=== PATIENT | female | born 1965 | race Hispanic/Latino ===

== ENCOUNTER 2025-02-04 06:42 | Outpatient (CLI) | payer OTHER, SELFPAY ==
--- NOTE | ~2025-02-04 | CT_ITS ---
EXAMINATION: CT abdomen pelvis w con DATE: 02/04/2025 07:25 INDICATION: Left lower quadrant abdominal TECHNIQUE: Computed tomography (CT) of the abdomen and pelvis was performed without intravenous contrast. The dose-length product was 928.16 mGy-cm. Automated exposure control and iterative reconstruction technique were employed. COMPARISON: None. FINDINGS: Lung bases are unremarkable. Heart size normal. No significant pleural or pericardial effusion. Fatty infiltration of the liver. The spleen, pancreas, adrenal glands are unremarkable. There is a 4 mm nonobstructing right renal stone. There is a 5 mm nonobstructing left renal stone. Nonobstructive bowel gas pattern. No significant vascular abnormality. No lymphadenopathy. No free air or free fluid. Status post cholecystectomy with expected prominence of the bile ducts. Severe lumbar spondylosis. Bladder is decompressed. IMPRESSION: 1. Nonobstructing bilateral nephrolithiasis. Reviewed, dictated and finalized at location O.
--- OUTSIDE RECORDS SUMMARY | 2025-02-04 06:47 | XMS_ITS | Encounter Summary ---
Author Organization [facility] Healthcare Address [address] [place] [address] Care Team Providers Care Telephone Order Dispatcher Name Role Phone Yvrose Kinney MD Primary Care Provider [phone] Sudhakar Liz MD Primary Care Provider [phone] Arianne Guo MD Primary Care Provider [phone] Timo Jerry MD Unavailable Rachid Hopper MD Unavailable Kenji Cardenas MD Primary Care Provider + [phone] Jenaro Avitia MD Unavailable [phone] Edward Hatfield MD Unavailable Lyn Nickerson PhD Unavailable [phone] Vargas Levy MD Unavailable [phone] Rosario Duncan DO Primary Care Provider [phone] Ti Parisi MD Unavailable [phone] Encounter Details Date Type Department Care Team (Late st Contact Info) Description 11/05/2016 Orders Only [facility] Health Information Management [address] [place] [address] Scanning, Provider Social History Tobacco Use Types Packs/Day Years Used Date Smoking Tobacco: Never Assessed Comments Unknown Sex and Gender Information Value Date Recorded Sex Assigned at Not on file Legal Sex Female 9:48 PM CDT Gender Identity Not on file Sexual Orientation Not on file documented as of this encounter Plan of Treatment Not on file documented as of this encounter Procedures Procedure Name Priority Date/Time Associated Diagnosis Comments SLEEP LAB/STUDY - RESULT 11/05/2016 documented in this encounter Results * SLEEP LAB/STUDY - RESULT (11/05/2016) us Provider Scanning Final Result documented in this encounter Visit Diagnoses Not on filedocumented in this encounter Additional Health Concerns Infection Onset Date Last Indicated Resolved Time COVID: Suspected 04/24/2023 04/24/2023 04/24/2023 11:51 AM PLASTICS FABRICATOR OR WELDER documented as of this encounter Care Teams Telephone Order Dispatcher Relationship Specialty Start Date End Date Yvrose Kinney MD [address] [address] PCP - General 07/25/19 08/11/19 Sudhakar Liz MD [address] [address] PCP - General Family Medicine 08/12/19 11/28/20 Arianne Guo MD [facility] [facility] [address] Malhotra [facility] [address] [place] [address] PCP - General Internal Medicine 11/29/20 10/15/22 Kenji Cardenas MD [address] [facility] [address]6B[address] [place] [address] PCP - General Internal Medicine 10/16/22 01/29/24 Rosario Duncan DO [address] [facility] [address] [place] [address] [place] [address] PCP - General Family Medicine 01/30/24 Timo Jerry MD [address] [facility] 6A/6B/12A [place] [address] Consulting Physician Orthopedic Surgery 10/16/22 Rachid Hopper MD [address] [facility] 6A/6B[address]A [place] [address] Consulting Physician Gastroenterology 10/16/22 Jenaro Avitia MD [address] [facility] 6A/6B[address]A [place] [address] Consulting Physician Neurology 10/16/22 Edward Hatfield MD [address] [place] [address] Consulting Physician Urology 10/16/22 Lyn Nickerson, PhD [address] [place] [address] Psychologist Psychology 10/16/22 Vargas Levy MD [facility] [address] [address] Consulting Physician Obstetrics and Gynecology 10/16/22 Ti Parisi MD [address] [place] [address] Consulting Physician General Surgery 12/08/24 documented as of this encounter
--- OUTSIDE RECORDS SUMMARY | 2025-02-04 06:47 | XMS_ITS | Encounter Summary ---
Author Organization [facility] Healthcare Address [address] [place] [address] Care Team Providers Care Shuffle Board Operator Name Role Phone Sudhakar Liz MD Primary Care Provider [phone] Arianne Guo MD Primary Care Provider [phone] Timo Jerry MD Unavailable Rachid Hopper MD Unavailable Kenji Cardenas MD Primary Care Provider + [phone] Jenaro Avitia MD Unavailable [phone] Edward Hatfield MD Unavailable Lyn Nickerson PhD Unavailable [phone] Vargas Levy MD Unavailable [phone] Rosario Duncan DO Primary Care Provider [phone] Ti Parisi MD Unavailable Encounter Details Date Type Department Care Team (Late st Contact Info) Description 11/02/2020 Telephone [facility] [address] [address] [place] [address] Tanya Malik, RT Social History Tobacco Use Types Packs/Day Years Used Date Smoking Tobacco: Never Smokeless Tobacco: Never Alcohol Use Standard Drinks/Week Comments Yes 1 (1 standard drink = 0.6 oz pur e alcohol) PHQ-2 Answer Date Recorded PHQ-2 Total Score 4 11/23/2019 Comments Unknown Sex and Gender Information Value Date Recorded Sex Assigned at Not on file Legal Sex Female 9:48 PM CDT Gender Identity Not on file Sexual Orientation Not on file documented as of this encounter Plan of Treatment Not on file documented as of this encounter Visit Diagnoses Not on filedocumented in this encounter Additional Health Concerns Infection Onset Date Last Indicated Resolved Time COVID: Suspected 04/24/2023 04/24/2023 04/24/2023 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 documented as of this encounter Care Teams Shuffle Board Operator Relationship Specialty Start Date End Date Sudhakar Liz MD PCP - General Family Medicine 08/12/19 11/28/20 Arianne Guo MD [facility] [address] Malhotra [address] [address] PCP - General Internal Medicine 11/29/20 10/15/22 Kenji Cardenas MD [address] [facility] [place] [address] PCP - General Internal Medicine 10/16/22 01/29/24 Rosario Duncan DO [address] [facility] [address] [place] [address] [place] [address] PCP - General Family Medicine 01/30/24 Timo Jerry MD [address] [facility] [place] [address] Consulting Physician Orthopedic Surgery 10/16/22 Rachid Hopper MD [address] [facility] [place] [address] Consulting Physician Gastroenterology 10/16/22 Jenaro Avitia MD [address] [facility] 6A/6B/12A [place] [address] Consulting Physician Neurology 10/16/22 Edward Hatfield MD [address] [place] [address] Consulting Physician Urology 10/16/22 Lyn Nickerson, PhD [address] [place] [address] Psychologist Psychology 10/16/22 Vargas Levy MD [address] [address] Consulting Physician Obstetrics and Gynecology 10/16/22 Ti Parisi MD [address] [place] [address] Consulting Physician General Surgery 12/08/24 documented as of this encounter
--- OUTSIDE RECORDS SUMMARY | 2025-02-04 06:47 | XMS_ITS | Encounter Summary ---
Author Organization [facility] Healthcare Address [address] [place] [address] Care Team Providers Care Pilot Submersible Name Role Phone Arianne Gou MD Primary Care Provider [phone] Timo Jerry MD Unavailable Rachid Hopper MD Unavailable Kenji Cardenas MD Primary Care Provider [phone] Jenaro Avitia MD Unavailable [phone] Edward Hatfield MD Unavailable Lyn Nickerson PhD Unavailable [phone] Vargas Levy MD Unavailable [phone] Rosario Duncan DO Primary Care Provider [phone] Ti Parisi MD Unavailable Reason for Visit * Reason Onset Date Comments Pre-Surgical Call 07/23/2021 Encounter Details Date Type Department Care Team (Late st Contact Info) Description 07/23/[address] [facility] [address] [facility] [address] [place] [address] Arturo Banuelos MD [address] [facility] [address] [place], [place] [address] Pre-Surgical Call Social History Tobacco Use Types Packs/Day Years Used Date Smoking Tobacco: Never Smokeless Tobacco: Never Comments:day and night Alcohol Use Standard Drinks/Week Comments Yes 1 (1 standard drink = 0.6 oz pur e alcohol) AUDIT-C Answer Date Recorded Q1: How often do you have a drink containing alc ohol? 2-4 times a month 07/20/2021 Q2: How many drinks containi ng alcohol do you have on a typical day when you are drinking? 1 or 2 07/20/2021 Q3: How often do you have si x or more drinks on one occasion? Never 07/20/2021 PHQ-2 Answer Date Recorded PHQ-2 Total Score 4 11/23/2019 Comments No Sex and Gender Information Value Date Recorded Sex Assigned at Not on file Legal Sex Female 9:48 PM CDT Gender Identity Not on file Sexual Orientation Not on file documented as of this encounter Plan of Treatment Not on file documented as of this encounter Goals Goal Patient Goal Type Associated Problems Recent Progress Patient-Stated? Author CCM Chronic Pain Care Plan Chronic Care Management Worsening( 1:39 PM UNDERGROUND DRILL OPERATOR) No Marla Thurston, BALTAZAR Note: Problem: Chronic Pain Goals: 1. Minimize further functional decline 2. Maximize quality of life 3. 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 documented as of this encounter Care Teams Pilot Submersible Relationship Specialty Start Date End Date Arianne Guo MD [address] [facility] [address] [place] [place] [address] PCP - General Internal Medicine 11/29/20 10/15/22 Kenji Cardenas MD [address] [place] [address] PCP - General Internal Medicine 10/16/22 01/29/24 Rosario Duncan DO [address] [facility] [address] [place] [address] PCP - General Family Medicine 01/30/24 Timo Jerry MD [address] [facility] 6A/6B[address]12[address] [place] [address] Consulting Physician Orthopedic Surgery 10/16/22 Rachid Hopper MD [address] [facility] 6A/6B[address] [place] [address] Consulting Physician Gastroenterology 10/16/22 Jenaro Avitia MD [address] [facility] [address] [place] [address] Consulting Physician Neurology 10/16/22 Edward Hatfield MD [address] [place] [address] Consulting Physician Urology 10/16/22 Lyn Nickerson, PhD [address] [place] [address] Psychologist Psychology 10/16/22 Vargas Levy MD [address] [facility] [address] [place] [address] Consulting Physician Obstetrics and Gynecology 10/16/22 Ti Parisi MD [address] [address] Consulting Physician General Surgery 12/08/24 documented as of this encounter
--- OUTSIDE RECORDS SUMMARY | 2025-02-04 06:47 | XMS_ITS | Encounter Summary ---
Author Organization [facility] Healthcare Address [address] [place] [address] Care Team Providers Care Concrete Foreman Name Role Phone Timo Jrery MD Unavailable Rachid Hopper MD Unavailable Jenaro Avitia MD Unavailable [phone] Edward Hatfield MD Unavailable Lyn Nickerson PhD Unavailable [phone] Vargas Levy MD Unavailable [phone] Rosario Duncan DO Primary Care Provider [phone] Ti Parisi MD Unavailable Encounter Details Date Type Department Care Team (Late st Contact Info) Description 01/14/2025 Results Follow-Up [facility] Family Medicine [address] [place] [phone] Rosario Duncan DO [address] [place] [address] CBC with auto differential Social History Tobacco Use Types Packs/Day Years Used Date Smoking Tobacco: Never Smokeless Tobacco: Never Comments:day and night Alcohol Use Standard Drinks/Week Comments Yes 1 (1 standard drink = 0.6 oz pur e alcohol) AUDIT-C Answer Date Recorded Q1: How often do you have a drink containing alc ohol? Monthly or less 12/08/2024 Q2: How many drinks containi ng alcohol do you have on a typical day when you are drinking? 1 or 2 12/08/2024 Q3: How often do you have si x or more drinks on one occasion? Never 12/08/2024 PHQ-2 Answer Date Recorded PHQ-2 Total Score (If total score is 3 or more points, staff should administer the PHQ-9) 2 01/12/2025 PHQ-9 Answer Date Recorded PHQ-9 Total Score 13 01/12/2025 Personal Safety Answer Date Recorded Have you ever been in or are you currently in a harmful physical or emotional relationship or is someone making you feel afraid or unsafe? Denies 12/08/2024 Comments No Sex and Gender Information Value [...] Plan Chronic Care Management Worsening( 1:39 PM MENTAL HEALTH NURSE) Marla Crespo, RN Note: Problem: Chronic Pain Goals: 1. Minimize further functional decline 2. Maximize quality of life 3. Control pain Strategies: - Activity/exercise program recommendation - Conservative stepwise pain medicine strategy with multi-disciplinary approach - Recommend healthy lifestyle strategies and compensatory methods as needed documented as of this encounter Visit Diagnoses Not on filedocumented in this encounter Care Teams Concrete Foreman Relationship Specialty Start Date End Date Rosario Duncan DO [address] [facility] [address] [place] [address] [place] [address] PCP - General Family Medicine 01/30/24 Timo Jerry MD [address] [facility] [place] [address] Consulting Physician Orthopedic Surgery 10/16/22 Rachid Hopper MD [address] [facility] [place] [address] Consulting Physician Gastroenterology 10/16/22 Jenaro Avitia MD [address] [facility] /6B/[address] [place] [address] Consulting Physician Neurology 10/16/22 Edward Hatfield MD [address] [place] [address] Consulting Physician Urology 10/16/22 Lyn Nickerson, PhD [address] [place] [address] Psychologist Psychology 10/16/22 Vargas Levy MD [address] [address] Consulting Physician Obstetrics and Gynecology 10/16/22 Ti Parisi MD [address] [place] [address] Consulting Physician General Surgery 12/08/24 documented as of this encounter
--- OUTSIDE RECORDS SUMMARY | 2025-02-04 06:47 | XMS_ITS | Clinical Summary ---
Author Organization [facility] [address] [place] [address] [place] [id number] Care Team Providers Care Turkey Picker Name Role Phone Timo Jerry MD Unavailable Rachid Hopper MD Unavailable Jenaro Avitia MD Unavailable [phone] Edward Hatfield MD Unavailable Lyn Nickerson PhD Unavailable [phone] Vargas Levy MD Unavailable [phone] Rosario Duncan DO Primary Care Provider [phone] Ti Parisi MD Unavailable Allergies Active Allergy Reactions Criticality Noted Date Comments Mushroom Itching,Swelling Medium 02/01/2020 Wheat Diarrhea,Flatulence,Stomach upset Low Medications cholecalciferol (VITAMIN D-3) 5,000 unit tablet 1 tablet (5,000 Units total) daily Active ibuprofen (ADVIL,MOTRIN) 600 mg tablet Take 1 tablet (600 mg total) by mouth every 6 (six) hours as needed for pain (pain) 60 tablet 022 Active albuterol 2.5 mg /3 mL (0.083 %) nebulizer solutionIndicat ions:Bronchospa stic Pulmonary Disease Take 6 mL (5 mg total) by nebulization 4 (four) times a day as needed for wheezing or shortness of breath 540 mL 1 023 Active oregano oiL 1,500 mg capsule Take by mouth Active NON FORMULARY, FOR INPATIENT USE, Histablock respiratory system Active acidophilus-pec tin, citrus 100 million cell-10 mg capsule Take by mouth Probiotic [address]Formulated Active fluticasone propion-salmete roL (Advair HFA) 115-21 mcg/actuation inhalerIndicati ons:Maintenance Therapy for Asthma Inhale 2 puffs 2 (two) times a day Rinse mouth with water after use. Do not swallow. 1 each 3 024 Active amLODIPine (NORVASC) 5 mg tabletIndicatio ns:Essential hypertension TAKE 1 TABLET DAILY 90 tablet 1 025 Active irbesartan (AVAPRO) 150 mg tabletIndicatio ns:Essential hypertension Take 1 tablet (150 mg total) by mouth daily 90 tablet 025 Active citalopram (CeleXA) 20 mg tabletIndicatio ns:Moderate episode of recurrent major depressive disorder (HCC) TAKE 1 TABLET DAILY 90 tablet 025 Active klnwmyfy-mzxp-q kk1-X-rbjc-bosw 750 mg-644 mg- 30 mg-1 mg tablet Take 1 tablet by mouth Active magnesium oxide 500 mg capsule Take 1 tablet by mouth daily Active pantoprazole DR (PROTONIX) 40 mg EC tabletIndicatio ns:Gastroesopha geal reflux disease, unspecified whether esophagitis present Take 1 tablet (40 mg total) by mouth daily 90 tablet 1 025 Active albuterol HFA (PROVENTIL HFA,VENTOLIN HFA,PROAIR HFA) 90 mcg/actuation inhalerIndicati ons:Moderate persistent asthma with acute exacerbation USE 2 INHALATIONS EVERY 6 HOURS NEEDED FOR WHEEZING 34 g [address] (PROTONIX) 40 mg EC tabletIndicatio ns:Gastroesopha geal reflux disease without esophagitis Take 1 tablet (40 mg total) by mouth daily 90 tablet 1 024 2024 Discontinued(R eorder) albuterol HFA (PROVENTIL HFA,VENTOLIN HFA,PROAIR HFA) 90 mcg/actuation inhalerIndicati ons:Moderate persistent asthma with acute exacerbation Inhale 2 puffs every 6 (six) hours as needed for wheezing 3 each 4 024 2024 Discontinued Active Problems Problem Noted Date Diagnosed Date Fecal urgency 09/09/2024 Right carpal tunnel syndrome 06/16/2024 Left carpal tunnel syndrome 06/16/2024 Carpal tunnel syndrome of right wrist 06/16/2024 Bilateral carpal tunnel syndrome 03/05/2024 Overview (03/05/2024): History of carpal tunnel. Prior surgery on the right. Symptoms worsening. We will refer to hand surgery. 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 Acid reflux may also be contributing. Prescribed nebulizer and recheck at next visit Lung nodule 09/03/2021 Altered bowel habits 06/21/2021 Gastroesophageal reflux disease without esophagi tis 06/21/2021 Assessment & Plan (01/20/2023 7:27 PM CDT): Relatively controlled. No major interval change Assessment & Plan (11/07/2022 4:48 PM CDT): No obvious reflux symptoms is taking omeprazole. Patient may possibly be having extra esophageal symptoms with more respiratory. Maybe triggering asthma flare Sciatica 03/06/2021 Assessment & Plan (03/06/2021 10:27 AM CDT): -chronic intermittent problem. Bilateral sciatica. No red flag symptoms such as loss of bowel or bladder sensation. Motor intact -patient has had MRI. She states she has three herniated discs as well as spina bifida occulta and scoliosis -patient has congenital back issues and was told she might need surgery at some point down the road. -will try a steroid Dosepak, ibuprofen 800 mg t.i.d. as well as gabapentin -physical therapy referral placed. Patient states she was doing very well with exercise/physical therapy in the past however she has not been doing this recently and symptoms recurred. -symptoms have been going on for two weeks Vitamin D deficiency 01/04/2021 Episodic tension-type headache, not intractable 09/19/2020 Assessment & Plan (03/27/2021 12:54 PM CDT): Prefers to hold off of additional medications at this time. She will continue to follow up with Dr. Carrera for neck and shoulder pain and Dr. Nickerson with Pain Psychology. Numbness and tingling in both hands 03/14/2020 Thyroid nodule 12/07/2019 Fibromyalgia 03/26/2019 Essential hypertension 03/26/2019 Assessment & Plan (03/09/2023 4:56 PM CDT): Controlled/stable. Continue current meds and plan Assessment & Plan (01/20/2023 7:25 PM CDT): Controlled/stable. Continue current meds and plan with irbesartan,amlodipine. Assessment & Plan (11/07/2022 4:45 PM CDT): Blood pressure slightly high today. Recommend monitoring home blood pressure readings and bring to next office visit. Continue medication Assessment & Plan (03/06/2021 10:26 AM CDT): -controlled on current regimen. Assessment & Plan (01/30/2021 4:52 PM CDT): - Chronic, Blood pressure is well-controlled - Discussed how routine use of a CPAP machine can help control BP - Continue current medications Assessment & Plan (01/04/2021 5:27 PM CDT): -elevated today however patient was very tearful. -patient to follow-up with me in the next 2 to 3 months -patient let me know if blood pressure routinely over 120/80 ANTONIO on CPAP 03/26/2019 Assessment & Plan (11/14/2022 3:06 PM CDT): The patient will continue CPAP at 9 cm water pressure. I did instruct the patient that if we care unable to get her download or her sleep study she would have to repeat a nocturnal polysomnogram with split night protocol no MSLT. The patient and I also discussed an in-home nocturnal polysomnogram as an option. Patient would be agreeable to complete the testing. DME is [employer] in [facility] I have also requested sleep study from the [facility] and the [employer] in [facility]. I have also provided the patient information in regards to the recall. Assessment & Plan (11/07/2022 4:49 PM CDT): Has been sometime since she is seen sleep Medicine. We will refer to see how she is doing. Sleep apnea maybe presenting with asthma like symptoms Assessment & Plan (03/06/2021 10:26 AM CDT): -following with Dr. [facility]. Assessment & Plan (01/30/2021 4:52 PM CDT): 1. Chronic, poorly controlled 2. This is in the setting of not using her CPAP because it was recalled 3. She will bring her sleep study and will place order for her to get new CPAP machine Moderate persistent asthma without complication 03/26/2019 Assessment & Plan (01/20/2023 7:27 PM CDT): Improved. But not at goal. Better by 50% . Using rescue 3-4/week. Reduced marijuana has helped. Medication (nebulizer) also helping. Continue and add on ICS (advair) Moderate episode of recurrent major depressive d isorder 03/26/2019 Assessment & Plan (03/09/2023 4:56 PM CDT): Controlled. Continue lifestyle modification Resolved Problems Problem Noted Date Diagnosed Date Resolved Date Fall 02/20/2022 01/30/2024 Assessment & Plan (02/20/2022 11:32 PM CDT): She had 2 separate falls. Both falls were accidental. She fell on her left shoulder and both knees. The right ankle is swollen and she reports right foot pain. She is able to bear weight on her foot and ankle. There is pain and decreased ROM in the left shoulder. Will check x rays. Prescription for Ibuprofen 600 mg q6h prn for pain provided. Advised to take with food. Will follow up pending results. Acute pain of both knees 02/20/202208/2023 Assessment & Plan (02/20/2022 11:36 PM CDT): She fell on both knees. There is some tenderness on palpation; no swelling. Will check x rays and treat with NSAID. Acute right ankle pain 02/20/202202/02 Assessment & Plan (02/20/2022 11:33 PM CDT): There is pain and swelling in the right ankle. She is able to bear weight. Most likely a strain, however will check x ray to r/o fracture. Will treat with rest, elevation and NSAID. Acute pain of left shoulder 02/20/2022 02/03/2024 Assessment & Plan (02/20/2022 11:36 PM CDT): She fell on her left shoulder after the 1st fall. There is pain and decreased ROM. Will check x ray. Will treat with NSAID. Follow up pending results. Pain in left foot 09/03/2021 02/03/2024 Epigastric pain 06/21/2021 08/28/2022 Weight loss 06/21/2021 08/28/2022 Exposure to industrial toxin 03/27/2021 01/30/2024 Overview (03/27/2021): Lived at [facility]. At elevated risk of ALS and certain malignancies. Does not currently have symptoms of asymmteric weakness but will follow up with her regularly for comprehensive examination. Asked her to keep me updated should she notice new focal symptoms. Myofascial right upper quadrant pain 01/04/2021 02/03/2024 Status post cholecystectomy 01/04/2021 02/03/2024 Preventative health care 01/04/2021 Assessment & Plan (11/22/2021 2:07 PM CDT): No charge could not connect with pt Brain tumor 04/17/2020 03/05/2024 Overview (03/05/2024): MRI brain 04/16/2020: T1 hyperintense lesion in the left superior frontal calvarium. When correlated with CT on 12/14/2019, given its well demarcated borders, this lesion is favored to be a benign lesion such as a hemangioma. Neck pain 03/14/2020 02/03/2024 Trigger finger of right thumb 10/11/2019 02/03/2024 Chronic pain of right thumb 03/26/2019 02/03/2024 Encounters Date Type Department Care Team Description 02/03/[address] [place] [phone] Rosario Duncan, DO Medical Question/Miscellaneo us 01/28/[address] [place] [phone] Rosario Duncan, DO Medical Question/Miscellaneo us 01/14/2025 Results Follow-Up [address] [place] [phone] Rosario Duncan, DO CBC with auto differential 01/12/2025 2:45 PM CDT Lab [facility] [address] [place] [address] Left lower quadrant abdominal pain 01/12/2025 2:00 PM CDT Office Visit [address] [place] [phone] Rosario Duncan, DO Left lower quadrant abdominal pain (Primary Dx); Diarrhea, unspecified type; Gastroesophageal reflux disease, unspecified whether esophagitis present; Dark stools; Encounter for screening mammogram for malignant neoplasm of breast 12/08/2024 10:30 AM CDT - 12/08/2024 11:50 AM CDT Surgery [facility] OR [address] [place] [phone] Ti Parisi MD EXCISIONAL BIOPSY LEFT AXILLARY NODULE 12/08/2024 10:18 AM CDT Anesthesia Event [facility] OR [address] [place] [phone] Mao Triana, PICC NURSE 12/08/2024 9:33 AM CDT - 12/08/2024 11:20 AM CDT Hospital Encounter [facility] OR [address] [place] [id number] Ti Parisi MD Axillary mass, left Discharge Disposition: Discharge to home or self care 11/24/[address] [place] [phone] Rosario Duncan DO Med Refill 11/11/[address] [place] [phone] Rosario Duncan DO Forms Request (Medical Clearance) from Last 3 Months Immunizations Immunization Administration Dates Next Due Influenza, Unspecified 03/02/2024(Deferr ed: Patient Refused),04/19/2023(Deferred: Patient Refused) Pfizer SARS-CoV-2 Monovalent Vaccination (12+ Yrs) NIXON-READY TO USE 10/22/2021 Pfizer SARS-CoV-2 Monovalent Vaccination (12+ Yrs) PURPLE 01/27/2021,01/06/2021 Pneumococcal Polysaccharide PPV23 12/31/2018 Surgical History Surgery Date Site/Laterality Comments TONSILLECTOMY CRANIOTOMY 06/02/2004 - 06/01/2005 extradural cyst CHOLECYSTECTOMY HYSTERECTOMY 06/02/1999 - 06/01/2000 Fibroids. they took ovaries out seperate time CARPAL TUNNEL RELEASE Right OOPHORECTOMY Bilateral unsure exactly. but they took everything APPENDECTOMY 06/02/2003 - 06/01/2004 FLUORO GUIDED ASPIRATION OR INJECTION LARGE JOINT BILATERAL 05/13/2022 Bilateral BREAST SURGERY 06/02/1989 - 06/01/1990 cyst removed FLUORO GUIDED ASPIRATION OR INJECTION LARGE JOINT BILATERAL 11/05/2022 Bilateral CARPAL TUNNEL RELEASE 06/22/2024 Right revision COLONOSCOPY W/ POLYPECTOMY x 3-4 hx polyps UPPER GASTROINTESTINAL ENDOSCOPY x2 CATARACT EXTRACTION Bilateral 11/17/24 and 11/22/24 CYST REMOVAL Medical History Medical History Date Comments Asthma Arthritis Carpal tunnel syndrome Sleep apnea Plantar fasciitis Peripheral neuropathy Gastric reflux Hypertension Kidney stone Osteoarthritis Thyroid nodule Allergic rhinitis Depression HL (hearing loss) bilateral Tinnitus Dizziness Fibromyalgia GERD (gastroesophageal reflux disease) Anxiety Not sure Cataract 2021 Exposure to industrial toxin 03/27/2021 [facility] ed at [facility]. At elevated risk of ALS and certain malignancies. Does not currently have symptoms of asymmteric weakness but will follow up with her regularly for comprehensive examination. Asked her to keep me updated should she notice new focal symptoms. Trigger finger of right thumb 10/11/2019 Brain tumor 04/17/2020 MRI brain 2019: T1 hyperintense lesion in the left superior frontal calvarium. When correlated with CT on 12/14/2019, given its well demarcated borders, this lesion is favored to be a benign lesion such as a hemangioma. PONV (postoperative nausea a nd vomiting) Heart murmur Irritable bowel syndrome Lung nodule Family History Medical History Relation Name Comments Thyroid cancer Brother Diabetes Father Rashid Riley n Hypertension Father Rashid Riley n Stroke Maternal Grandfather Tao White Breast cancer Maternal Grandmother Carol Ruiz unsu re of age, did not get to meet her Cancer Maternal Grandmother Carol Ruiz Depression Mother Alona White Fibromyalgia Mother Alona White Mental illness Mother Alona White Alcohol abuse Mother's Brother 1 Bryant White Arthritis Mother's Brother 2 Jimmy White ([place] Heart attack Mother's Brother 3 Jimmy White Heart disease Mother's Brother 3 Jimmy White Hypertension Mother's Brother 3 Jimmy White Thyroid cancer Sister 1 Thyroid disease Sister 2 Relation Name Status Comments Brother Alive Father Rashid Riley n Maternal Grandfather Tao White Maternal Grandmother Carol Ruiz Mother Alona White Mother's Brother 1 Bryant White Mother's Brother 2 Jimmy White ([place] Mother's Brother 3 Jimmy White Sister 1 Alive Sister 2 Alive Social History Tobacco Use Types Packs/Day Years Used Date Smoking Tobacco: Never Smokeless Tobacco: Never Tobacco Cessation:Counseling Given: Not Answered Comments:day and night Alcohol Use Standard Drinks/Week [...] on file Sexual Orientation Not on file Obstetrics History Para Term AB IAB SAB Ectopic Multiple Livin g Live Births 0 0 0 0 0 0 0 0 0 0 0 Comments Menarche: 9 Last Filed Vital Signs Vital Sign Reading Time Taken Comments Blood Pressure 112/86 01/12/2025 1:59 PM CDT Pulse 79 01/12/2025 1:59 PM CDT Temperature 36.3 C (97.3 F) 01/12/2025 1:59 PM CDT Respiratory Rate 16 12/08/2024 11:0 7 AM CDT Oxygen Saturation 97% 01/12/2025 1:59 PM CDT Inhaled Oxygen Concentration - - Weight 89.7 kg (197 lb 12.8 oz) 01/12/2025 1:59 PM CDT Height 165.1 cm (5' 5) 01/12/2025 1:59 PM CDT Body Mass Index 32.92 01/12/2025 1:59 PM CDT Plan of Treatment Health Maintenance Due Date Last Done Comments DTaP/Tdap/Td Vaccine (1 - Tdap) 1974 Hepatitis B Screening 1981 Zoster Vaccine (1 of 2) 2013 Pneumococcal vaccine <65 (2 of 2 - PCV) 01/01/2020 12/31/2018 Covid-19 Vaccine (4 - 2024-2 6 season) 2025 10/22/2021, 01/27/2021, 01/06/2021 Breast Cancer Screening-Mammogram 02/05/2025 02/06/2024, 12/17/2022, 11/14/2020 Regular Well Visit/Exam 18-64 03/05/2025, 01/04/2021, 12/06/2020 Depression Screening 01/12/2026 01/12/2025, 07/21/2024, 07/21/2024, Additional history exists Colon Cancer Screening-Colonoscopy 09/24/2034 09/24/2024, 10/20/2020 Cervical Cancer Screening Discontinued 12/06/2020 Hepatitis C Screening Completed 01/04/2021 Colon Cancer Screening-CT Colonography Discontinued 09/24/2024, 10/20/2020 Colon Cancer Screening-DNA Stool Discontinued 09/25/19, 10/20/2020 Colon Cancer Screening-FIT Discontinued 09/24/2024, Colon Cancer Screening-Sigmoidoscopy Discontinued 09/24/2024, 10/20/2020 Influenza Vaccine Discontinued Goals Goal Patient Goal Type Associated Problems Recent Progress Patient-Stated? Author CCM Chronic Pain Care Plan Chronic Care Management Worsening( 1:39 PM [employer]) Marla Crespo, RN Note: Problem: Chronic Pain Goals: 1. Minimize further functional decline 2. Maximize quality of life 3. Control pain Strategies: - Activity/exercise program recommendation - Conservative stepwise pain medicine strategy with multi-disciplinary approach - Recommend healthy lifestyle strategies and compensatory methods as needed Medical Devices Implanted Type Area Ct Technologist Device Identifier Shelf Expiration Date Model / Serial / Lot Titanium Mesh In Head Head Lens Bilateral: Eye Procedures Procedure Name Priority Date/Time Associated Diagnosis Comments EGFR Routine 01/12/2025 2:54 PM CDT Left lower quadrant abdominal pain DIFFERENTIAL AUTO Routine 01/12/2025 2:5 4 PM CDT Left lower quadrant abdominal pain LIPASE Routine 01/12/2025 2:54 PM CDT Left lower quadrant abdominal pain COMPREHENSIVE METABOLIC PANEL Routine 01/12/2025 2:54 PM CDT Left lower quadrant abdominal pain CBC WITH AUTO DIFFERENTIAL Routine 01/12/2025 2:54 PM CDT Left lower quadrant abdominal pain SURGICAL PATHOLOGY Routine 12/08/2024 10 :41 AM CDT Axillary mass, left EXCISION CYST/LESION/MASS - TRUNK 12/08/2024 10:18 AM CDT LEFT AXILLARY NODULE COLONOSCOPY 09/24/2024 7:49 AM CDT SCREENING MAMMOGRAM BILATERAL W MK Schedule Routine, Read Routine (OP Routine) 02/06/2024 9:02 AM CDT Encounter for screening mammogram for malignant neoplasm of breast HEPATITIS C ANTIBODY Routine 01/04/2021 3:12 PM CDT Preventative health care THINPREP PAP WITH HPV Routine 12/06/2020 9:39 AM CDT from Last 3 Months or Most Recently Relevant to Health Maintenance Results * eGFR (01/12/2025 2:54 PM CDT) eGFR 72 >=60 mL/min/1. 73 m2 Comment: Interpretive Data Reference Interval Normal >/= 90 mL/min/1.73m2 Mildly decreased* 60 - 89 mL/min/1.73m2 Mildly to moderately decreased 45 - 59 mL/min/1.73m2 Moderately to severely decreased 30 - 44 mL/min/1.73m2 Severely decreased 15 - 29 mL/min/1.73m2 Kidney Failure < 15 mL/min/1.73m2 *Relative to young adult level Estimated glomerular filtration rate is determined by the 2020 CKD-EPI equation recommended by the National Kidney Foundation (A Unifying Approach to GFR Estimation: Recommendations of the NKF-ASK Task Force on Reassessing the Inclusion of Race in Diagnosing Kidney Disease, JASN 2020). The CKD-EPI equation should not be used for patients with unstable renal function and has not been validated in children and those over 70. Current interpretive data was last reviewed 2021. Blood 01/12/2025 2:54 PM CDT 01/12/2025 3:19 PM CDT us Rosario Duncan DO LAB BLOOD ORDERABLES Final Resul t [facility] [address] [facility] Department [place] [address] * Differential, auto (01/12/2025 2:54 PM CDT) Neutrophil abs 3.49 1.50 - 6.50 K/cumm Imm gran abs 0.01 0.00 - 0.10 K/cumm [facility] Lymphocyte abs 1.34 0.80 - 3.30 K/cumm [facility] Monocyte abs 0.55 0.20 - 0.80 K/cumm [facility] Eosinophil abs 0.13 0.00 - 0.50 K/cumm [facility] Basophil abs 0.04 0.00 - 0.10 K/cumm [facility] Neutrophil pct 62.8 % [facility] Comment: Interpretive Data Percent cell count reference ranges are not reported, since discordance with absolute values may lead to misinterpretation of CBC data. Current Interpretive Data was last revised on 2017. Imm gran pct 0.2 % [facility] Comment: Interpretive Data Percent cell count reference ranges are not reported, since discordance with absolute values may lead to misinterpretation of CBC data. Current Interpretive Data was last revised on 2017. Lymphocyte pct 24.1 % [facility] Comment: Interpretive Data Percent cell count reference ranges are not reported, since discordance with absolute values may lead to misinterpretation of CBC data. Current Interpretive Data was last revised on 2017. Monocyte pct 9.9 % [facility] Comment: Interpretive Data Percent cell count reference ranges are not reported, since discordance with absolute values may lead to misinterpretation of CBC data. Current Interpretive Data was last revised on 2017. Eosinophil pct 2.3 % [facility] Comment: Interpretive Data Percent cell count reference ranges are not reported, since discordance with absolute values may lead to misinterpretation of CBC data. Current Interpretive Data was last revised on 2017. Basophil pct 0.7 % [facility] Comment: Interpretive Data Percent cell count reference ranges are not reported, since discordance with absolute values may lead to misinterpretation of CBC data. Current Interpretive Data was last revised on 2017. Blood 01/12/2025 2:54 PM CDT 01/12/2025 3:21 PM CDT Rosario Duncan DO LAB BLOOD ORDERABLES Final Resul t Performing Organization Address [facility] de Phone Number [place] [id number] [facility] Department [place] [address] * (ABNORMAL) CBC with auto differential (01/12/2025 2:54 PM CDT) WBC 5.56 3.80 - 9.90 K/cumm Hgb 15.5 11.9 - 15.5 g/dL [facility] Hct 45.9(H) 35.6 - 45.5 % [facility] Plt 198 150 - 400 K/cumm [facility] MPV 10.2 9.1 - 12.3 fL [facility] RBC 4.98 3.90 - 5.20 M/cumm [facility] MCV 92.2 81.3 - 96.4 fL [facility] MCH 31.1 27.1 - 33.3 pg [facility] MCHC 33.8 32.3 - 35.7 g/dL [facility] RDW CV 13.0 11.1 - 14.9 % [facility] RDW SD 43.4 35.7 - 48.1 fL [facility] NRBC abs 0.00 0.00 - 0.01 K/cumm [facility] Blood 01/12/2025 2:54 PM CDT 01/12/2025 3:21 PM CDT us Rosario Duncan DO LAB BLOOD ORDERABLES Final Resul t Performing Organization Address City/[facility] Co de Phone Number [place] [phone] [place] [address] * Lipase (01/12/2025 2:54 PM CDT) [facility] Lipase 18 10 - 99 Units/L Blood 01/12/2025 2:54 PM CDT 01/12/2025 3:19 PM CDT Rosario Duncan DO LAB BLOOD ORDERABLES Final Resul t Performing Organization Address [facility] Co de Phone Number [address] [address] * Comprehensive metabolic panel (01/12/2025 2:54 PM CDT) [facility] Sodium 140 135 - 145 mmol/L Potassium, pl 4.2 3.3 - 4.9 mmol/L [facility] Chloride 102 97 - 110 mmol/L [facility] CO2 29 22 - 32 mmol/L [facility] Anion gap 9 2 - 15 mmol/L [facility] BUN 19 6 - 25 mg/dL [facility] Creatinine 0.91 0.60 - 1.10 mg/dL [facility] Glucose 98 70 - 199 mg/dL [facility] Comment: Interpretive Data Fasting glucose >/= 126 mg/dl is diagnostic for diabetes. Fasting is defined as no caloric intake for at least 8 hours. Fasting glucose between 100 mg/dl to 125 mg/dl is diagnostic of prediabetes. In a patient with classic symptoms of hyperglycemia or hyperglycemic crisis, a random glucose >/= 200 mg/dl is diagnostic for diabetes. In the absence of unequivocal hyperglycemia, results should be confirmed by repeat testing. The classification and Diagnosis of Diabetes Diabetes Care 2021; 46: S19-S40. Current interpretive data was last revised 2022. Calcium 9.6 8.5 - 10.3 mg/dL [facility] Bilirubin, total 0.4 0.1 - 1.2 mg/dL [facility] Protein, pl 7.4 6.5 - 8.5 g/dL [facility] Albumin 4.5 3.5 - 5.0 g/dL [facility] Alk phos 94 40 - 130 Units/L [facility] ALT 27 7 - 45 Units/L [facility] AST 27 10 - 45 Units/L [facility] Blood 01/12/2025 2:54 PM CDT 01/12/2025 3:19 PM CDT Rosario Duncan DO LAB BLOOD ORDERABLES Final Resul t [facility] [address] Department [place] [address] * Surgical pathology (12/08/2024 10:41 AM CDT) Tissue (Mass/Tumor/Lesio n) 12/08/2024 10:41 AM CDT Narrative PATHOLOGY [facility] - 12/10/2024 4:29 PM CDT [facility] Department of Pathology [address] [place] [address] Note to Patients: This report may contain a detailed description of human tissue sent by a health care provider to the laboratory for pathologic evaluation. The content of this report is essential for diagnosis and may provide important critical findings. This information may be unfamiliar to patients to review without a medical professional present. It is advised that the patient review this report in the presence of a health care provider who can answer questions and explain the details. Final Report Patient Name: CARIDAD FIERRO : 1965 (Age: 59) Gender: F Address: [address] [place] [address] Hospital #: [id number] Service: Surgery Location: Patient Type: [facility] OUTPATIENT Taken: 12/08/2024 Received: 12/08/2024 Accessioned: 12/08/2024 Reported: 12/10/2024 Physician(s): MD Rosario العراقي DO Diagnosis: Skin, left axillary, excision: Follicular cyst, infundibular type, and scar Zehra Lyon M.D. Report Electronically Reviewed and Signed Out By Zehra Lyon M.D. 12/10/2024 16:29:34 Specimen(s) Received: A: Skin, left axillary, excision Microscopic Description: There is a cyst filled with orthokeratotic cornified cells and lined by epidermoid squamous epithelium. There is a proliferation of fibroblasts aligned parallel to the skin surface interposed among linearly arranged, thickened collagen bundles and small blood vessels. (L72.0, L90.5) Microscopic slide review and interpretation for this case was performed at the D[facility]at[facility] Center, Department of Pathology and Immunology, [facility], [address] [place] [address], [address] [place] [address] CLIA # [id number] There is a cyst filled with orthokeratotic cornified cells and lined by epidermoid squamous epithelium. There is a proliferation of fibroblasts aligned parallel to the skin surface interposed among linearly arranged, thickened collagen bundles and small blood vessels. (L72.0, L90.5) Microscopic slide review and interpretation for this case was performed at the [facility] Center, Department of Pathology and Immunology, [facility], [address] [place] [address], Suite [facility], [place] [address] CLIA # [id number] Clinical History: The patient is a 59-year-old woman with left axillary nodule. Operative procedure: excisional biopsy of left axillary nodule. Gross Description Received in a single formalin filled container labeled with the patient's identifiers and left axillary nodule is an unoriented ellipse of wrinkled, nixon skin measuring 2.5 x 0.5 cm with yellow-rivera and fatty subcutaneous tissue excised to a depth of up to 1.3 cm. There are no lesions appreciated on the skin surface. Inked black. Sectioned to show fibrofatty tissue. Labeled A1 through A3 with tips in A 1. Jar 0. mns12/08/2024 12:45 Mindy Drake MS, PA ([facility] Microscopic slide review and interpretation for this case was performed at [facility], Department of Surgical Pathology, [address] [facility] [place], [id number], [place] [address] CLIA # [id number] us Ti [place] MD LAB PATHOLOGY ORDERAB LES Final Result PATHOLOGY [facility] * Colonoscopy (09/24/2024 7:49 AM CDT) Anatomical Region Laterality Modality Other Narrative Procedure Note Luis Antonio Solares MD - 09/24/2024 7:49 AM CDT [facility] GI ENDOSCOPY Patient Name: Caridad Fierro Procedure Date: 09/24/2024 7:49 AM Date of : 1965 Admit Type: Outpatient Age: 59 Gender: Female Attending MD: Luis Antonio Solares M.D. Room: [facility] ENDOSCOPY ROOM 06 Note Status: Finalized Procedure: Colonoscopy Indications: Chronic diarrhea, average risk Referring MD: Providers: Luis Antonio Solares M.D. Medicines: See the Anesthesia note for documentation of the administered medications Complications: No immediate complications. Estimated Blood Loss: Estimated blood loss was minimal. Procedure: Pre-Anesthesia Assessment: - Prior to the procedure, a History and Physicalwas performed, and patient medications and allergieswere reviewed. The risks and benefits of the procedureand the sedation options and risks were discussed withthe patient. All questions were answered and informed consent was obtained. Patient identification and proposed procedure were verified. After reviewingthe risks and benefits, the patient was deemed in satisfactory condition to undergo the procedure.The anesthesia plan was to use monitored anesthesiacare (MAC). Immediately prior to administration of medications, the patient was re-assessed foradequacy to receive sedatives. The heart rate, respiratory rate, oxygen saturations, blood pressure, adequacyof pulmonary ventilation, and response to care were monitored throughout the procedure. The physical status of the patient was re-assessed after the procedure. The benefits, risks and alternatives of theprocedure and sedation were discussed and informed consentwas obtained. All questions were answered. Please referto the signed informed consent document in the medical record. The scope was passed under direct vision.The prollie-[id number] colonoscope was introduced through theanus and advanced to the terminal ileum, with identification of the appendiceal orifice and IC valve. The colonoscopy was performed without difficulty. The patient tolerated the procedurewell. The quality of the bowel preparation was good.Scope insertion time was 4 minutes. Scope withdrawal time was 11 minutes. Prep was administered in a splitdose. Findings: The perianal and digital rectal examinations were normal. The visualized terminal ileum appeared normal. Colonic mucosa normal. Biopsies for histology were taken with a cold forceps for evaluation of microscopic colitis. Impression: - The examined portion of the terminal ileum was normal. - Colonic mucosa normal. Biopsied. Recommendation: - Await pathology results. - Resume previous diet today. - Discharge patient to home. - Increase fiber. - Patient has a contact number available for emergencies. The signs and symptoms of potential delayed complications were discussed with thepatient. Return to normal activities tomorrow. Written discharge instructions were provided to thepatient. - Repeat colonoscopy in 10 years for screening purposes. - I would be happy to see you in my GI clinic ifyou have further questions or concerns or if symptoms progress Luis Antonio Solares M.D. 09/24/2024 8:28:44 AM Number of Addenda: 0 Note Initiated On: 09/24/2024 7:49 AM Recognized by the [employer] for promoting quality in endoscopy Luis Antonio Solares MD ENDOSCOPY PROCEDURES Rosmery l Result * SCREENING MAMMOGRAM BILATERAL W MK (02/06/2024 9:02 AM CDT) Anatomical Region Laterality Modality Breast Bilateral Mammography Impressions 02/06/2024 10:15 AM CDT BI-RADS ATLAS category (overall): 2 - Benign There is no mammographic evidence of malignancy. A 1 year screening mammogram is recommended. The patient has been or will be contacted. We recommend annual screening mammography for women at average risk of breast cancer beginning at age 40, based on guidelines of the [employer] (ACR Practice Parameter for the Performance of Screening and Diagnostic Mammography) and [employer]. For women with and elevated risk of breast cancer, please refer to the ACR Practice Parameter for specific screening recommendations. The patient will be entered into a reminder system with a target due date of 1 year for her next screening exam. Narrative 02/06/2024 10:15 AM CDT SCREENING MAMMOGRAM BILATERAL W MK: 02/06/24 The study was acquired using full field digital technology and interpreted from soft copy. 2D digital mammographic views, as well as 3D digital tomosynthesis were performed in the CC and MLO projections. CLINICAL: Encounter for screening mammogram for malignant neoplasm of breast. No relevant medical history has been documented for this patient. History of breast cancer in Maternal Grandmother. COMPARISONS: 12/17/2022 Screening Mammogram Bilateral W Mk 05/18/2021 Diagnostic Mammogram Left W Mk 11/14/2020 Diagnostic Mammogram Bilateral W Mk BREAST TISSUE: There are scattered areas of fibroglandular density. FINDINGS: A new benign oil cyst is noted in the central upper right breast at anterior depth. There is no new suspicious finding in either breast on mammogram. Rosario Duncan DO IMG MAMMO PROCEDURES Final Resul t * Hepatitis C antibody (01/04/2021 3:12 PM CDT) Hep C Ab Nonreactive Nonreactive [facility] Comment:Antibodies to HCV no t detected. Does NOT exclude the possibility of recent exposure to HCV. Blood specimen (specimen) 01/04/2021 3:12 PM CDT 01/04/2021 4:44 PM CDT us Arianne Guo MD LAB MICROBIOLOGY - GENERA L ORDERABLES Edited Result - Final [facility] [place] [address] * ThinPrep Pap with HPV (12/06/2020 9:39 AM CDT) Pap test 12/06/2020 9:39 AM CDT 12/11/2020 9:39 AM CDT Narrative 12/13/2020 2:54 PM CDT [facility] Department of Pathology [address] [place] [address] Final Report with Addendum Patient Name: CARIDAD FIERRO Address: [address] [place] [address] Gender: F : 1965 (Age: 55) Service: Laboratory [facility] #: [id number] Patient Type: [facility] SPECIMEN Taken: 12/06/2020 Received: 12/11/2020 Accessioned:: 12/12/2020 Reported: 12/13/2020 Physician(s): Vargas Levy M.D. [facility] Diagnosis: Source of Specimen: Imaged Thinprep Pap Test plus HPV - Advertising Clerk Cytologic Material Specimen Adequacy: - Specimen satisfactory for evaluation (vaginal pap) General Category: - Negative for intraepithelial lesion or malignancy Interpretation/Results: - Atrophic smear pattern KRISTIN Islas(ASCP) Report Electronically Reviewed and Signed Out By KRISTIN Islas(ASCP) 12/13/2020 14:54:45 Addenda: HPV Test Interpretation NEGATIVE for types 16, 18, 31, 33, 35, 39, 45, 51, 52, 56, 58, 59, 66 and 68. Test performed utilizing Gen-Probe Aptima assay. KRISTIN Islas(ASCP) Report Electronically Reviewed and Signed Out By KRISTIN Islas(ASCP) 12/13/2020 11:25:09 Specimen(s) Received: A: Imaged Thinprep Pap Test plus HPV - Advertising Clerk Cytologic Material Clinical History: Menstrual History: Hysterectomy: total Previous Negative Pap The Pap test is a screening test used to aid in the detection of cervical cancer and its precursors. It should not be the sole means by which malignant and premalignant lesions are diagnosed. Both false negative and false positive results may occur. It also has poor sensitivity for the detection of endometrial lesions and should not be used to evaluate suspected endometrial abnormalities. For these reasons it is most important to obtain Pap tests at regular intervals. The performance characteristics of some immunohistochemical stains, fluorescence in-situ hybridization tests and immunophenotyping by flow cytometry cited in this report (if any) were determined by the Surgical Pathology Department at [facility] as part of an ongoing manufacturing quality engineer program and in compliance with federally mandated regulations drawn from the Clinical Laboratory Improvement Act of 1988 (CLIA '88). Some of these tests rely on the use of analyte specific reagents and are subject to specific labeling requirements by the US Food and Drug Administration. Such diagnostic tests may only be performed in a facility that is certified by the Department of Health and Human Services as a high complexity laboratory under CLIA '88. The FDA has determined that such clearance or approval is not necessary. This test is used for clinical purposes. It should not be regarded as investigational or for research. Nevertheless, federal rules concerning the medical use of analyte specific reagents require that the following disclaimer be attached to the report: This test was developed and its performance characteristics determined by the Surgical Pathology Department [facility]. It has not been cleared or approved by the U. S. Food and Drug Administration. Vargas Levy MD LAB CYTOLOGY ORDERABLES Final Result from Last 3 Months or Most Recently Relevant to Health Maintenance Insurance #[address] [place] [address] [facility] CLAIMS [facility] CLAIMS [facility] CLAIMS [facility] CLAIMS Advance Directives For more information, please contact: [phone] * Full Code (Latest Code Status on File) Date Activated Date Inactivated Comments 06/28/2021 10:37 AM 06/28/2021 4:49 PM Care Teams Turkey Picker Relationship Specialty Start Date End Date Rosario Duncan DO [address] [place] [address] [place] [address] PCP - General Family Medicine 01/30/24 Timo Jerry MD [address] [facility] [place] [address] Consulting Physician Orthopedic Surgery 10/16/22 Rachid Hopper MD [address] [facility] [address] Consulting Physician Gastroenterology 10/16/22 Jenaro Avitia MD [address] [facility] [place] [address] Consulting Physician Neurology 10/16/22 Edward Hatfield MD [address] [place] [address] Consulting Physician Urology 10/16/22 Lyn Nickerson, PhD [address] [place] [address] Psychologist Psychology 10/16/22 Vargas Levy MD [address] [address] Consulting Physician Obstetrics and Gynecology 10/16/22 Ti [place]i MD [address] [address] Consulting Physician General Surgery 12/08/24
--- OUTSIDE RECORDS SUMMARY | 2025-02-04 06:47 | XMS_ITS | Encounter Summary ---
Author Organization [facility] Healthcare Address [address] [place] [address] Care Team Providers Care Rn Hyperbaric Name Role Phone Timo Jerry MD Unavailable Rachid Hopper MD Unavailable Kenji Cardenas MD Primary Care Provider [phone] Jenaro Avitia MD Unavailable [phone] Edward Hatfield MD Unavailable Lyn Nickerson PhD Unavailable [phone] Vargas Levy MD Unavailable [phone] Rosario Duncan DO Primary Care Provider [phone] Ti [place]i MD Unavailable Encounter Details Date Type Department Care Team (Late st Contact Info) Description 11/04/2022 Telephone [facility] [address] [place] [address] Ger Broussard, RT Social History Tobacco Use Types Packs/Day Years Used Date Smoking Tobacco: Never Smokeless Tobacco: Never Comments:day and night Alcohol Use Standard Drinks/Week Comments Yes 1 (1 standard drink = 0.6 oz pur e alcohol) AUDIT-C Answer Date Recorded Q1: How often do you have a drink containing alc ohol? Monthly or less 08/28/2022 Average Number of Drinks Not on file 023 Frequency of Binge Drinking Not on file 08/01 PHQ-2 Answer Date Recorded PHQ-2 Total Score (If total score is 3 or more points, staff should administer the PHQ-9) 2 10/16/2022 Comments No Sex and Gender Information Value [...] Plan Chronic Care Management Worsening( 1:39 PM AUTO PARTS CLERK) No Marla Thurston, RN Note: Problem: Chronic Pain Goals: 1. [...] COVID: Suspected 04/24/2023 04/24/2023 04/24/2023 11:51 AM AUTO PARTS CLERK documented as of this encounter Care Teams Rn Hyperbaric Relationship Specialty Start Date End Date Kenji Cardenas MD [address] [facility] [place] [address] PCP - General Internal Medicine 10/16/22 01/29/24 Rosario Duncan DO [address] [facility] [address] [place] [address] [place] [address] PCP - General Family Medicine 01/30/24 Timo Jerry MD [address] [facility] [place] [address] Consulting Physician Orthopedic Surgery 10/16/22 Rachid Hopper MD [address] [facility] [place] [address] Consulting Physician Gastroenterology 10/16/22 Jenaro Avitia MD [address] [facility] [place] [address] Consulting Physician Neurology 10/16/22 Edward Hatfield MD [address] [place] [address] Consulting Physician Urology 10/16/22 Lyn Nickerson, PhD [address] [place] [address] Psychologist Psychology 10/16/22 Vargas Levy MD [address] [address] Consulting Physician Obstetrics and Gynecology 10/16/22 [place] [address] [place] [address] Consulting Physician General Surgery 12/08/24 documented as of this encounter
--- OUTSIDE RECORDS SUMMARY | 2025-02-04 06:47 | XMS_ITS | Encounter Summary ---
Author Organization [facility] Healthcare Address [address] [place] [address] Care Team Providers Care Service Dismantler Name Role Phone Yvrose Kinney MD Primary Care Provider [phone] Sudhakar Liz MD Primary Care Provider [phone] Arianne Guo MD Primary Care Provider [phone] Timo Jerry MD Unavailable Rachid Hopper MD Unavailable Kenji Cardenas MD Primary Care Provider [phone] Jenaro Avitia MD Unavailable [phone] Edward Hatfield MD Unavailable Lyn Nickerson PhD Unavailable [phone] Vargas Levy MD Unavailable [phone] Rosario Duncan DO Primary Care Provider [phone] Ti [place]i MD Unavailable [phone] Encounter Details Date Type Department Care Team (Late st Contact Info) Description 12/10/2018 Orders Only [facility] Health Information Management [address] [place] [address] Scanning, Provider Social History Tobacco Use [...] Associated Diagnosis Comments SLEEP LAB/STUDY - RESULT 12/10/2018 documented in this encounter Results * SLEEP LAB/STUDY - RESULT (12/10/2018) us Provider Scanning Final Result documented in this encounter Visit Diagnoses Not on filedocumented in this encounter Additional Health Concerns Infection Onset Date Last Indicated Resolved Time COVID: Suspected 04/24/2023 04/24/2023 04/24/2023 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 documented as of this encounter Care Teams Service Dismantler Relationship Specialty Start Date End Date Yvrose Kinney MD [address] [address] PCP - General 07/25/19 08/11/19 Sudhakar Liz MD [address] [address] PCP - General Family Medicine 08/12/19 11/28/20 Arianne Guo MD [facility] [address] [place] [address] PCP - General Internal Medicine 11/29/20 10/15/22 Kenji Cardenas MD [address] [facility] [address] [place] [address] PCP - General Internal Medicine 10/16/22 01/29/24 Rosario Duncan DO [address] [facility] [address] [place] [address] [place] [address] PCP - General Family Medicine 01/30/24 Timo Jerry MD [address] [facility] [address] [place] [address] Consulting Physician Orthopedic Surgery 10/16/22 Rachid Hopper MD [address] [facility] [address] [place] [address] Consulting Physician Gastroenterology 10/16/22 Jenaro Avitia MD [address] [facility] [address] [place] [address] Consulting Physician Neurology 10/16/22 Edward Hatfield MD [address] [place] [address] Consulting Physician Urology 10/16/22 Lyn Nickerson, PhD [address] [place] [address] Psychologist Psychology 10/16/22 Vargas Levy MD [facility] [address] [address] Consulting Physician Obstetrics and Gynecology 10/16/22 Ti Parisi MD [address] [place] [address] Consulting Physician General Surgery 12/08/24 documented as of this encounter
--- OUTSIDE RECORDS SUMMARY | 2025-02-04 06:47 | XMS_ITS | Encounter Summary ---
Author Organization [facility] Healthcare Address [address] [place] [address] Care Team Providers Care Electrical Unit Rebuilder Name Role Phone Timo Jerry MD Unavailable Rachid Hopper MD Unavailable Jenaro Avitia MD Unavailable [phone] Edward Hatfield MD Unavailable Lyn Nickerson PhD Unavailable [phone] Vargas Levy MD Unavailable [phone] Rosario Duncan DO Primary Care Provider [phone] Ti [place]i MD Unavailable [phone] Reason for Visit * Reason Onset Date Comments Medical Question/Miscellaneous 02/03/2025 Encounter Details Date Type Department Care Team (Late st Contact Info) Description 02/03/2025 Telephone [facility] Family Medicine [address] [place] [phone] Rosario Duncan DO [address] [place] [address] Medical Question/Miscellaneous Social History Tobacco Use Types Packs/Day Years [...] on file documented as of this encounter Miscellaneous Notes * Telephone Encounter - Rere Oneal - 02/03/2025 3:14 PM CDT Approval obtained faxed to [facility], patient made aware * Telephone Encounter - Rere Oneal - 02/03/2025 10:57 AM CDT Order faxed to [facility], see other communication to patient in order. * Telephone Encounter - Sheila Haas MA - 02/03/2025 8:40 AM CDT Medical Question/Miscellaneous Caller???s Concern: Juan from [facility] states the patient will be in first thing in the morning to get a CT of abdomen and pelvis however, they do not have an order. They are asking that be faxed [facility] to this number: [phone] Due to them needing is charissa, CS will send this over as HP. Please advise and thank you so much. Does message need to be routed? Yes-Action Needed documented in this encounter Plan of Treatment Not on file documented as of this encounter Goals Goal Patient Goal Type Associated Problems Recent Progress Patient-Stated? Author CCM Chronic Pain Care Plan Chronic Care Management Worsening( 1:39 PM BATTERY LOADER) Marla Crespo, RN Note: Problem: Chronic Pain Goals: 1. Minimize further functional decline 2. Maximize quality of life 3. Control pain Strategies: - Activity/exercise program recommendation - Conservative stepwise pain medicine strategy with multi-disciplinary approach - Recommend healthy lifestyle strategies and compensatory methods as needed documented as of this encounter Visit Diagnoses Not on filedocumented in this encounter Care Teams Electrical Unit Rebuilder Relationship Specialty Start Date End Date Rosario Duncan DO [address] [address] PCP - General Family Medicine 01/30/24 Timo Jerry MD [address] [facility] [address] Consulting Physician Orthopedic Surgery 10/16/22 Rachid Hopper MD [address] [facility] [address] Consulting Physician Gastroenterology 10/16/22 Jenaro Avitia MD [address] [facility] [address] Consulting Physician Neurology 10/16/22 Edward Hatfield MD [address] [place] [address] Consulting Physician Urology 10/16/22 Lyn Nickerson, PhD [address] [place] [address] Psychologist Psychology 10/16/22 Vargas Levy MD [address] [address] Consulting Physician Obstetrics and Gynecology 10/16/22 Ti Parisi MD [address] [place] [address] Consulting Physician General Surgery 12/08/24 documented as of this encounter
--- OUTSIDE RECORDS SUMMARY | 2025-02-04 06:47 | XMS_ITS | Clinical Summary ---
Author Organization [facility] Address [address] [place] [address] Care Team Providers Care [facility] Department Supervisor Name Role Phone Yvrose Kinney MD Primary Care Provider [phone] Allergies No known active allergies Medications AVAPRO 150 MG tablet Take 150 mg by mouth daily. 9 Active trazodone 50 MG tabletIndications :Insomnia,Pt alternates between Trazodone and marijuana for sleep Take 50 mg by mouth nightly at bedtime. Indications: Trouble Sleeping, Pt alternates between Trazodone and marijuana for sleep 9 Active PROAIR HFA 108 (90 Base) MCG/ACT inhaler Inhale 2 puffs into the lungs. 9 Active FLOVENT HFA 110 MCG/ACT inhalerIndication s:Moderate persistent asthma without complication (HHS/HCC) Inhale 2 puffs into the lungs 2 (two) times daily. 3 Inhaler 3 9 Active marijuana inhalation Active duloxetine 30 MG capsuleIndication s:Fibromyalgia Take 30 mg daily for 1 week then increase to 60 mg daily. 60 capsule 1 9 Active AMLODIPINE 5 MG tabletIndications :Essential hypertension TAKE 1 TABLET DAILY 90 tablet 0 Active Active Problems Problem Noted Date Diagnosed Date Fibromyalgia 03/26/2019 Moderate episode of recurrent major depressive d isorder 03/26/2019 Obstructive sleep apnea syndrome 03/26/2019 Essential hypertension 03/26/2019 Chronic pain of right thumb 03/26/2019 Moderate persistent asthma without complication (HHS/HCC) 03/26/2019 Immunizations Immunization Administration Dates Next Due Pneumococcal (Pneumovax 23) 12/31/2018 Family History Medical History Relation Comments Suicide Mother Relation Status Comments Father Mother Social History Tobacco Use Types Packs/Day Years Used Date Smoking Tobacco: Never Smokeless Tobacco: Never Comments:Does not smoke ciga rettes; Smokes marijuana daily Alcohol Use Standard Drinks/Week Comments Yes 0 (1 standard drink = 0.6 oz pur e alcohol) socially PHQ-2 Answer Date Recorded PHQ-2 Score 3 04/28/2019 Comments No Sex and Gender Information Value Date Recorded Sex Assigned at Not on file Legal Sex Female 2:35 PM CDT Gender Identity Not on file Sexual Orientation Not on file Last Filed Vital Signs Vital Sign Reading Time Taken Comments Blood Pressure 134/89 04/22/2019 9:43 AM [facility] Pulse 72 04/22/2019 9:43 AM [facility] Temperature 36.9 C (98.4 F) 04/22/2019 9:43 AM [facility] Respiratory Rate 18 04/22/2019 9:43 AM [facility] Oxygen Saturation 99% 04/22/2019 9:43 AM [facility] Inhaled Oxygen Concentration - - Weight 92.2 kg (203 lb 4.8 oz) 04/22/2019 9:43 A M [facility] Height 165.1 cm (5' 5) 04/22/2019 9:43 AM [facility] Body Mass Index 33.83 04/22/2019 9:43 AM [facility] Plan of Treatment Health Maintenance Due Date Last Done Comments Colorectal Cancer Screening Colonoscopy (10 Years) 1963 Annual Physical 1966 DTaP, Tdap and Td Vaccines ( 1 - Tdap) 1982 Zoster Vaccines (1 of 2) 2013 Pneumococcal Vaccine: 50+ Years (2 of 2 - PCV) 01/01/2020 12/31/2018 Mammogram Screening 11/14/2022 11/14/2020 RSV Immunization or 60+ Years (1 - Risk 60-74 years 1-dose series) 2023 COVID-19 Vaccine (2023-2 5 season) 2024 10/22/2021, 01/27/2021, 01/06/2021 Hepatitis C Completed 03/25/2019 Meningococcal B Vaccine Aged Out No l onger eligible based on patient's age to complete this topic Meningococcal Vaccine Aged Out No leonidas leisa eligible based on patient's age to complete this topic RSV Immunizations Under 20 Months Aged Out No longer eligible b ased on patient's age to complete this topic Procedures Procedure Name Priority Date/Time Associated Diagnosis Comments MAMMOGRAM GENERIC (SCAN ORDER) Routine 11/14/2020 HEPATITIS C ANTIBODY Routine 03/25/2019 9:49 AM CDT Screening examination for infectious disease from Last 3 Months or Most Recently Relevant to Health Maintenance Results * MAMMOGRAM (11/14/2020) Anatomical Region Laterality Modality Other us Doc Med Group Scanned SCANNING Final Resu lt * HEPATITIS C ANTIBODY (03/25/2019 9:49 AM CDT) HEPATITIS C AB NON-REACTI VE NON-REACTI VE 03/25/2019 8:46 PM CDT [facility] 03/25/2019 9:49 AM CDT Yvrose Kinney MD LABORATORY Final Result [facility] [address] [place] [address], from Last 3 Months or Most Recently Relevant to Health Maintenance Insurance Care Teams [facility] Department Supervisor Relationship Specialty Start Date End Date Yvrose Kinney MD [address] [facility] [address] [place] [address] PCP - General FAMILY PRACTICE 03/24/19
[2025-02-04 07:15] LABS: Estimated Glomerular Filt Rate 56
== END 2025-02-04 06:43 | disposition home or self-care (01) ==
DX: N20.0 Calculus of kidney (principal)
CPT/HCPCS: 74177; Q9967